=== PATIENT | female | born 1960 | race African-American/Black ===

== ENCOUNTER 2019-08-09 00:53 | Emergency (ER) | payer OTHER ==
--- NOTE | 2019-08-09 03:21 | ER Document Report ---
ED Head/Face/Scalp Injury - General Chief Complaint: Facial Injury Stated Complaint: LEFT EYE/FOREHEAD INJURY Time Seen by Provider: 08/09/19 03:20 Mode of Arrival: Ambulatory Information source: Patient Notes: HISTORY OF PRESENT ILLNESS: Patient is a 59-year-old female with a past medical history of left cataract removal who presents with direct blow from metal object while at work. Patient reports that she works at [employer] when a metal shelf that she was helping to install fell, striking against the left side of her face. Since then, she has had mild swelling around the eye with some remittent blurred vision to the left side, both of which have now improved and almost resolved. Of note, patient also reports mild headache but denies ataxia or confusion/disorientation after the event. Location: Face Onset: Prior to arrival Provocation: Struck by a metal object Quality: Swelling, tenderness Radiation: None Severity: Mild Timing: Constant History of headaches: None Recent head injury: As, while at work Vision changes: Yes, intermittent blurred vision Trouble walking: None Associated symptoms: Denies nausea or vomiting, no confusion or disorientation, no ataxia REVIEW OF SYSTEMS: CONSTITUTIONAL : Denies fever or chills, no sweats. Denies recent illness. EENT: Positive for left eye blurred vision. CARDIOVASCULAR: Denies chest pain. RESPIRATORY: Denies cough, cold, or chest congestion. Denies shortness of breath, difficulty breathing, or wheezing. GASTROINTESTINAL: Denies abdominal pain. Denies nausea, vomiting, or diarrhea. Denies constipation. GENITOURINARY: Denies difficulty urinating, painful urination, burning, frequency, or blood in urine. MUSCULOSKELETAL: Denies body aches. Denies neck or back pain or joint pain or swelling. SKIN: Denies rash or skin lesions. HEMATOLOGIC : Denies easy bruising or bleeding. LYMPHATIC: Denies swollen, enlarged glands. NEUROLOGICAL: Positive for headaches. Denies altered mental status or loss of consciousness. Denies weakness or paralysis or loss of use of either side. Denies problems with gait or speech. Denies sensory or motor loss. PSYCHIATRIC: Denies anxiety or stress or depression. All other systems reviewed and negative. PHYSICAL EXAMINATION: GENERAL: Well-appearing, well-nourished and in no acute distress. HEAD: Small abrasion to the left hinduism, normocephalic. No scalp deformity, de pression, or crepitance. EYES: Pupils are 3 mm and equal/round/reactive to light, extraocular movements intact, sclera anicteric, conjunctiva are normal. ENT: Mild left periorbital edema. Nares patent bilaterally, oropharynx clear without exudates or palatal petechia. Moist mucous membranes. No tonsil hypertrophy. NECK: Normal range of motion, supple without lymphadenopathy. LUNGS: Breath sounds present, equal, and clear to auscultation bilaterally. No wheezes, rales, or rhonchi. HEART: Regular rate and rhythm without murmurs, rubs, or gallops. 2+ peripheral pulses. Normal capillary refill. ABDOMEN: Soft, nontender, nondistended. Normoactive bowel sounds. No guarding, no rebound. No masses appreciated. BACK: Normal contour, no midline tenderness. Rectal exam deferred. GENITAL/PELVC: Deferred. EXTREMITIES: Normal range of motion, no pitting or edema. No cyanosis. NEUROLOGICAL: No focal neurological deficits. Cranial nerves III-XII grossly intact. Moves all extremities spontaneously and on command. PSYCH: Normal mood, normal affect. No suicidal thoughts/ideations. No homicidal thoughts/ideations. No hallucinations. SKIN: Warm, dry, normal turgor, no rashes or lesions noted. ASSESSMENT AND PLAN: This patient is a 59-year-old female who presents with direct blow to the face by metal object while at work. Exam is limited secondary to the patient's inability to completely open her left eye when forced, however spontaneously she is able to open the eye and there appears to be no obvious injury to the globe. 1. Will obtain CT scans of the orbits in the face. 2. Will reassess. TRAVEL OUTSIDE OF THE [place] IN LAST 30 DAYS: No - HPI Patient complains to provider of: Injury Injury to: Cheek, Face, Head Location of problem: Cheek, Forehead, Head Occurred: Just prior to arrival Where: Work Timing: Still present Context: Direct blow Loss consciousness: No loss of consciousness Remembers: Injury, Coming to hospital - Related Data Allergies/Adverse Reactions: No Known Allergies Allergy (Verified 08/09/19 01:21) Past Medical History - General Information source: Patient - Social History Smoking Status: Never Smoker Chew tobacco use (# tins/day): No Frequency of alcohol use: None Drug Abuse: None Lives with: Alone Family History: Reviewed & Not Pertinent Patient has suicidal ideation: No Patient has homicidal ideation: No - Past Medical History Cardiac Medical History: Reports: None Pulmonary Medical History: Reports: None EENT Medical History: Reports: None Neurological Medical History: Reports: None Endocrine Medical History: Reports: None Renal/ Medical History: Reports: None Malignancy Medical History: Reports: None GI Medical History: Reports: None Musculoskeletal Medical History: Reports None Skin Medical History: Reports None Psychiatric Medical History: Reports: None Traumatic Medical History: Reports: None Infectious Medical History: Reports: None Past Surgical History: Reports: Other - History of cataract surgery - Immunizations Immunizations up to date: Yes Hx Diphtheria, Pertussis, Tetanus Vaccination: Yes Review of Systems - Review of Systems Constitutional: No symptoms reported EENT: See HPI, Blurred vision Cardiovascular: No symptoms reported Respiratory: No symptoms reported Gastrointestinal: No symptoms reported Genitourinary: No symptoms reported Female Genitourinary: No symptoms reported Musculoskeletal: No symptoms reported Skin: No symptoms reported Hematologic/Lymphatic: No symptoms reported Neurological/Psychological: See HPI, Headaches -: Yes All other systems reviewed and negative Physical Exam - Vital signs Vitals: Temp Pulse Resp BP Pulse Ox 98.2 F 94 16 147/66 H 99 08/09/19 01:01 08/09/19 01:01 08/09/19 01:01 08/09/19 01:01 08/09/19 01:01 Interpretation: Normal - HEENT Visual acuity- Right eye: 20/40 Visual acuity- Left eye: 20/50 Visual acuity- Both eyes: 20/30 Corrective lenses worn: No - pt reports she only wears reading glasses for up close reading. Course - Re-evaluation Re-evalutation: 08/09/19 06:03 CT scans are negative. I have instructed the patient that she needs to be evaluated by ophthalmology as soon as possible to do a more thorough funduscopic exam, involving both dilation and direct visualization of the deeper structures of the eye. I have instructed the patient that it is best for her to be transferred, however she has declined this and reports that she will drive home immediately and see her mat repairer who did her cataract surgery 2 years ago. I told the patient that if she does not present to be seen immediately, she risks permanent vision loss as well as damage to the eye that may not be reversible. Patient again reports understanding this and has declined further treatment or transfer at this time. Will discharge the patient home with strict return precautions and follow-up with ophthalmology as soon as possible. All results were explained to and discussed with the patient, and all questions a ddressed and answered. The patient voices both understanding and agreeing with the plan. - Vital Signs Vital signs: Temp Pulse Resp BP Pulse Ox 98.2 F 84 18 167/88 H 97 08/09/19 01:01 08/09/19 02:12 08/09/19 02:12 08/09/19 02:12 08/09/19 02:12 - Diagnostic Test Radiology reviewed: Image reviewed, Reports reviewed Discharge - Discharge Clinical Impression: Head injury Qualifiers: Encounter type: initial encounter Qualified Code(s): S09.90XA - Unspecified injury of head, initial encounter Condition: Good Disposition: HOME, SELF-CARE Instructions: Head Injury Precautions ([facility]) Additional Instructions: You have been evaluated in the Emergency Department for facial swelling and blurred vision in the left eye following being struck in the face at work. While here, you had normal CT scans and it is now safe to be discharged home. Please follow-up with your mat repairer as instructed as soon as possible; drop to see them immediately. Return to the Emergency Department if you experience worsening headaches, worsening vision, difficulty walking, confusion/disorientation, or any other concerning symptoms. Print Language: German
--- NOTE | 2019-08-09 05:42 | RADIOLOGY REPORT (SQ) ---
EXAM DESCRIPTION: CT MAXILLOFACIAL WITHOUT IV CONTRAST COMPLETED DATE/TME: 08/09/2019 03:41 CLINICAL HISTORY: 59 years, Female, Injury TO LEFT EYE, LEFT LOWER FOREHEAD. HX OF IMPLANT L EYE COMPARISON: None. TECHNIQUE: Axial CT images of the maxillofacial region were obtained without contrast. Sagittal and coronal reformats were performed. DLP 982 Images stored on PACS. All CT scanners at this facility use dose modulation, iterative reconstruction, and/or weight based dosing when appropriate to reduce radiation dose to as low as reasonably achievable (ALARA). [facility]: Dose Right [facility]: CareDose [facility]: Dose Right [facility]: Teradose 4D [facility]: [employer] LIMITATIONS: None. FINDINGS: Mild soft tissue swelling along the left periorbital soft tissues. No retro-orbital hematoma. The globes are intact. Changes of cataract surgery within the left eye. The orbits are intact. The mandible and maxilla are intact. The nasal bones are intact. The zygomatic arches are intact. The paranasal sinuses are clear. IMPRESSION: No acute fracture or dislocation. Mild soft tissue swelling along the left periorbital soft tissues. TECHNICAL DOCUMENTATION: Quality ID # [id number]: Final reports with documentation of one or more dose reduction techniques (e.g., Automated exposure control, adjustment of the mA and/or kV according to patient size, use of iterative reconstruction technique) copyright 2011 [employer]- All Rights Reserved
[2019-08-09 06:19] VITALS: BP 154/98
== END 2019-08-09 06:17 | disposition home or self-care (01) ==
LOC: ER 00:53
DX: S00.81XA Abrasion of other part of head, initial encounter (principal); H53.8 Other visual disturbances; R51 Headache; W20.8XXA Other cause of strike by thrown, projected or falling object, initial encounter; Y93.89 Activity, other specified; Y92.512 Supermarket, store or market as the place of occurrence of the external cause; Y99.0 Civilian activity done for income or pay
CPT/HCPCS: 70486; 99283